=== PATIENT | female | born 1965 | race Asian ===

== ENCOUNTER 2021-08-15 13:29 | Outpatient (CLI) | payer OTHER | END 2021-08-15 20:41 | disposition home or self-care (01) | LOC: MRD 13:29 | PROVIDERS: ATTEND Specialist | DX: N20.0 Calculus of kidney (principal) | CPT/HCPCS: 74018 ==

== ENCOUNTER 2021-08-16 10:24 | Outpatient (CLI) | payer OTHER | END 2021-08-16 21:14 | disposition home or self-care (01) | LOC: MRD 10:24 | PROVIDERS: ATTEND Specialist | DX: N20.0 Calculus of kidney (principal); N13.30 Unspecified hydronephrosis | CPT/HCPCS: 76770 ==

== ENCOUNTER 2021-09-23 10:32 | Outpatient (CLI) | payer OTHER | END 2021-09-23 19:56 | disposition home or self-care (01) | LOC: MUS 10:32 → MCT 19:56 | PROVIDERS: ATTEND Specialist | DX: N20.0 Calculus of kidney (principal) ==